=== PATIENT | male | born 1955 | race Caucasian/White ===

== ENCOUNTER 2017-09-13 19:39 | Emergency (ER) | payer MEDICAID ==
[~2017-09-13] VITALS: Ht 188 cm; Wt 72.0 kg
[2017-09-13] MEDS ORDERED: KETOROLAC 30 MG/1 ML ONE (20:18)
[2017-09-13] MEDS ORDERED: KETOROLAC 30 MG/1 ML IM ONE (20:30)
[2017-09-13] MEDS ORDERED: PLEASE ENTER ALLERGIES MC SCH (20:30)
[2017-09-13 22:57] VITALS: BP 123/70
== END 2017-09-13 22:59 | disposition home or self-care (01) ==
LOC: ED 21:32
DX: S72.111A Displaced fracture of greater trochanter of right femur, initial encounter for closed fracture (principal); W01.0XXA Fall on same level from slipping, tripping and stumbling without subsequent striking against object, initial encounter; Y93.89 Activity, other specified; Y92.410 Unspecified street and highway as the place of occurrence of the external cause; Y99.8 Other external cause status
CPT/HCPCS: 72192; 73502; 96372; 99284; J1885

== ENCOUNTER 2018-03-23 20:34 | Emergency (ER) | payer MEDICAID ==
[~2018-03-23] VITALS: Ht 188 cm; Wt 75.3 kg
[2018-03-23 20:59] VITALS: BP 130/72
[2018-03-23] MEDS ORDERED: HYDROcodone/APAP 5/325 TABLET ONE (21:53)
[2018-03-23] MEDS ORDERED: HYDROcodone/APAP 5/325 TABLET PO ONE (22:00)
[2018-03-23] MEDS ORDERED: BACITRACIN ZINC OINT 500U/GM, 0.9 GM ONE (23:49)
== END 2018-03-24 00:14 | disposition home or self-care (01) ==
LOC: ED 03-24 00:08
DX: S80.02XA Contusion of left knee, initial encounter (principal); S00.33XA Contusion of nose, initial encounter; R04.0 Epistaxis; K04.7 Periapical abscess without sinus; K02.9 Dental caries, unspecified; F17.200 Nicotine dependence, unspecified, uncomplicated; W01.0XXA Fall on same level from slipping, tripping and stumbling without subsequent striking against object, initial encounter; Y93.01 Activity, walking, marching and hiking; Y92.89 Other specified places as the place of occurrence of the external cause; Y99.8 Other external cause status
CPT/HCPCS: 70486; 99284

== ENCOUNTER 2018-07-13 03:26 | Emergency (ER) | payer MEDICAID ==
[2018-07-13 03:28] VITALS: BP 132/84
--- NOTE | 2018-07-13 03:35 | NUR ---
BIB [facility] FOR RASH TO ABDOMEN DOWN TO KNEES. PER [facility] WHEN THEY LIFTED THE PATIENTS SHIRT THEY SAY BUGS CRAWLING ON HIS BACK AND ALSO IN HIS HAIR AND ON HIS HAT. PT TAKEN TO [facility] SHOWER ROOM IMMEDIATELY UPON ARRIVAL. PT REMOVED CLOTHES AND STARTED TO BATHE SELF.
--- NOTE | 2018-07-13 03:43 | NUR ---
PT GIVEN CLEAN CLOTHES. INFESTED CLOTHES PLACED IN RED BIOHAZARD BAG.
== END 2018-07-13 04:35 | disposition home or self-care (01) ==
LOC: ED 03:47
DX: B86 Scabies (principal)
CPT/HCPCS: 99283

== ENCOUNTER 2018-07-13 19:02 | Inpatient (IN) | payer MEDICAID ==
[~2018-07-13] VITALS: Ht 182.9 cm; Wt 78.2 kg
--- NOTE | 2018-07-13 19:20 | NUR ---
JOHANA ROCKWELL FROM [facility] FOR BED BUGS CRAWLING IN HAIR. PT HAS DRY, ITCHY SKIN STARTING AT NECK DOWN TO LEGS. PT TAKEN TO [facility] FOR SHOWER UPON ARRIVAL.
[2018-07-13 19:52] LABS: BASOPHILS # (AUTO) 0.05 x10^3/uL (0-0.1); BASOPHILS % (AUTO) 0 % (0-1); EOSINOPHILS # (AUTO) 0.44 x10^3/uL (0-0.4); EOSINOPHILS % (AUTO) 4 % (1-7); LYMPHOCYTES # (AUTO) 0.88 x10^3/uL (1-3.4); LYMPHOCYTES % (AUTO) 8 % (22-44); MD NO; MEAN CORPUSCULAR HGB CONC 33.9 g/dL (33.2-36.2); MEAN CORPUSCULAR VOLUME 94.4 fL (81-97); MEAN PLATELET VOLUME 7.2 fL (7.4-10.4); MONOCYTES # (AUTO) 1.08 x10^3/uL (0.2-0.8); MONOCYTES % (AUTO) 9 % (2-9); NEUTROPHILS # (AUTO) 9.05 x10^3/uL (1.8-6.8); NEUTROPHILS % (AUTO) 79 % (42-75); PLATELET COUNT 297 x10^3/uL (130-400); RED BLOOD COUNT 4.09 x10^6/uL (4.38-5.82); RED CELL DISTRIBUTION WIDTH 14.5 % (9.4-14.8)
[2018-07-13] MEDS ORDERED: BACITRACIN OINT 500U/GM, 15 GM TP ONE (20:00)
[2018-07-13] MEDS ORDERED: AMPICILLIN/SULBACTAM 3 GM in SODIUM CHLORIDE 0.9% 100 ML IV ONE (20:00)
[2018-07-13 20:05] LABS: ALANINE AMINOTRANSFERASE 14 U/L (12-78); ANION GAP 8 mmol/L (5-15); CALCIUM 8.2 mg/dL (8.5-10.1); CHLORIDE 103 mmol/L (98-107); CREATININE 0.88 mg/dL (0.7-1.3)
[2018-07-13 20:07] LABS: ALKALINE PHOSPHATASE 80 U/L (45-117); BILIRUBIN,TOTAL 0.3 mg/dL (0.2-1.0); TOTAL PROTEIN 6.9 g/dL (6.4-8.2)
--- NOTE | 2018-07-13 21:04 | NUR ---
PT SLEEPING. VSS. UPDATED ON POC.
[2018-07-14] MEDS ORDERED: ONDANSETRON ODT 4 MG PO PRN
[2018-07-14] MEDS ORDERED: LIDODERM 5% PATCH TD PRN
[2018-07-14] MEDS ORDERED: PERMETHRIN CRM 5%, 60GM TP SCH
[2018-07-14] MEDS ORDERED: ENALAPRILAT 1.25 MG/ML, 2ML IVPush PRN
[2018-07-14] MEDS ORDERED: BISACODYL 10 MG SUPP PR PRN
[2018-07-14 01:52] VITALS: BP 139/72
[2018-07-14] MEDS: ENOXAPARIN 40 MG/0.4 ML SQ SCH (03:00)
[2018-07-14] MEDS: DIPHENHYDRAMINE 25 MG CAPSULE PO PRN ×3 (03:00→23:15)
[2018-07-14] MEDS: AMPICILLIN/SULBACTAM 3 GM in SODIUM CHLORIDE 0.9% 100 ML IV SCH ×3 (03:01→20:19)
[2018-07-14 04:51] LABS: BASOPHILS # (AUTO) 0.02 x10^3/uL (0-0.1); BASOPHILS % (AUTO) 0 % (0-1); EOSINOPHILS # (AUTO) 0.57 x10^3/uL (0-0.4); EOSINOPHILS % (AUTO) 5 % (1-7); LYMPHOCYTES # (AUTO) 1.15 x10^3/uL (1-3.4); LYMPHOCYTES % (AUTO) 10 % (22-44); MD NO; MEAN CORPUSCULAR HEMOGLOBIN 32.2 pg (27.5-34.5); MEAN CORPUSCULAR HGB CONC 34.2 g/dL (33.2-36.2); MEAN CORPUSCULAR VOLUME 94.1 fL (81-97); MEAN PLATELET VOLUME 7.4 fL (7.4-10.4); MONOCYTES # (AUTO) 1.11 x10^3/uL (0.2-0.8); MONOCYTES % (AUTO) 10 % (2-9); NEUTROPHILS # (AUTO) 8.87 x10^3/uL (1.8-6.8); NEUTROPHILS % (AUTO) 76 % (42-75); PLATELET COUNT 293 x10^3/uL (130-400); RED BLOOD COUNT 3.93 x10^6/uL (4.38-5.82); RED CELL DISTRIBUTION WIDTH 14.5 % (9.4-14.8)
[2018-07-14 05:01] LABS: ANION GAP 6 mmol/L (5-15); CHLORIDE 105 mmol/L (98-107); CREATININE 0.65 mg/dL (0.7-1.3)
[2018-07-14 07:19] VITALS: BP 100/55
[2018-07-14 13:16] VITALS: BP 99/58
[2018-07-14] MEDS ORDERED: POTASSIUM CHLORIDE 20 MEQ TAB.ER.PRT PO ONE (14:00)
[2018-07-14] MEDS: MUPIROCIN OINT 2%, 22GM TP SCH (16:05)
[2018-07-14] MEDS: MINERA CRM, 60GM TP SCH ×2 (16:05→21:00)
[2018-07-14 19:48] VITALS: BP 104/63
[2018-07-15 01:41] VITALS: BP 98/60
[2018-07-15] MEDS: ENOXAPARIN 40 MG/0.4 ML SQ SCH (04:04)
[2018-07-15] MEDS: AMPICILLIN/SULBACTAM 3 GM in SODIUM CHLORIDE 0.9% 100 ML IV SCH ×3 (04:04→20:30)
[2018-07-15] MEDS: MUPIROCIN OINT 2%, 22GM TP SCH ×2 (04:05→17:04)
[2018-07-15 08:19] VITALS: BP 107/54
[2018-07-15] MEDS: MINERA CRM, 60GM TP SCH ×3 (09:04→20:30)
[2018-07-15 12:15] VITALS: BP 123/67
[2018-07-15] MEDS: DIPHENHYDRAMINE 25 MG CAPSULE PO PRN ×2 (12:46→20:53)
[2018-07-15 18:58] VITALS: BP 108/62
[2018-07-15] MEDS ORDERED: POTASSIUM CHLORIDE 20 MEQ TAB.ER.PRT PO ONE (20:30)
[2018-07-16 02:08] VITALS: BP 114/66
[2018-07-16] MEDS: ENOXAPARIN 40 MG/0.4 ML SQ SCH (04:03)
[2018-07-16] MEDS: MUPIROCIN OINT 2%, 22GM TP SCH ×2 (04:03→18:23)
[2018-07-16] MEDS: AMPICILLIN/SULBACTAM 3 GM in SODIUM CHLORIDE 0.9% 100 ML IV SCH ×3 (04:04→20:27)
[2018-07-16] MEDS: DIPHENHYDRAMINE 25 MG CAPSULE PO PRN ×2 (04:23→18:28)
[2018-07-16] MEDS: ACETAMINOPHEN 325 MG TABLET PO PRN ×2 (04:23→20:27)
[2018-07-16 05:56] LABS: ANION GAP 5 mmol/L (5-15); CALCIUM 8.1 mg/dL (8.5-10.1); CHLORIDE 107 mmol/L (98-107)
[2018-07-16 05:59] LABS: BASOPHILS # (AUTO) 0.04 x10^3/uL (0-0.1); BASOPHILS % (AUTO) 1 % (0-1); EOSINOPHILS # (AUTO) 1.04 x10^3/uL (0-0.4); EOSINOPHILS % (AUTO) 14 % (1-7); LYMPHOCYTES # (AUTO) 1.34 x10^3/uL (1-3.4); LYMPHOCYTES % (AUTO) 18 % (22-44); MD NO; MEAN CORPUSCULAR HEMOGLOBIN 31.2 pg (27.5-34.5); MEAN CORPUSCULAR HGB CONC 32.9 g/dL (33.2-36.2); MEAN CORPUSCULAR VOLUME 94.8 fL (81-97); MEAN PLATELET VOLUME 7.5 fL (7.4-10.4); MONOCYTES # (AUTO) 0.74 x10^3/uL (0.2-0.8); MONOCYTES % (AUTO) 10 % (2-9); NEUTROPHILS # (AUTO) 4.37 x10^3/uL (1.8-6.8); NEUTROPHILS % (AUTO) 58 % (42-75); PLATELET COUNT 326 x10^3/uL (130-400); RED CELL DISTRIBUTION WIDTH 14.3 % (9.4-14.8)
[2018-07-16 07:05] VITALS: BP 114/74
[2018-07-16] MEDS: MULTIVITAMIN 1 TABLET PO SCH (09:27)
[2018-07-16] MEDS: MINERA CRM, 60GM TP SCH ×3 (09:28→20:27)
[2018-07-16 15:27] VITALS: BP 119/75
[2018-07-16 19:55] VITALS: BP 113/70
[2018-07-17 01:29] VITALS: BP 130/74
[2018-07-17] MEDS: AMPICILLIN/SULBACTAM 3 GM in SODIUM CHLORIDE 0.9% 100 ML IV SCH ×2 (04:17→12:37)
[2018-07-17] MEDS: MUPIROCIN OINT 2%, 22GM TP SCH ×2 (04:17→17:38)
[2018-07-17] MEDS: ENOXAPARIN 40 MG/0.4 ML SQ SCH (04:17)
[2018-07-17] MEDS: ACETAMINOPHEN 325 MG TABLET PO PRN (04:25)
[2018-07-17 06:55] VITALS: BP 126/74
[2018-07-17] MEDS: MULTIVITAMIN 1 TABLET PO SCH (08:39)
[2018-07-17] MEDS: MINERA CRM, 60GM TP SCH ×2 (08:39→17:37)
[2018-07-17] MEDS: DIPHENHYDRAMINE 25 MG CAPSULE PO PRN (08:39)
[2018-07-17 14:00] VITALS: BP 155/75
[2018-07-17] MEDS ORDERED: SULF-169 PO (15:01)
[2018-07-17] MEDS ORDERED: CALA118S2 TP (15:01)
[2018-07-17] MEDS ORDERED: MULT1TAB60 PO (15:01)
[2018-07-17] MEDS ORDERED: LIDO700A20 TD (15:01)
[2018-07-17] MEDS ORDERED: AMOX1TAB12 PO (15:01)
[2018-07-17] MEDS ORDERED: MUPI22OI2 TP (15:01)
[2018-07-17 16:06] VITALS: BP 123/73
[2018-07-17 18:00] VITALS: BP 127/80
[2018-07-17] MEDS ORDERED: SULFAMETH./TRIMETHOPRIM DS 800MG/160MG TABLET PO SCH (21:00)
[2018-07-17] MEDS ORDERED: AMOXICILLIN/CLAV 875-125MG TABLET PO SCH (21:00)
== END 2018-07-17 19:32 | disposition home or self-care (01) | DRG 872 ==
LOC: ED 20:35 → EDIP 21:07 → 3NE 22:10
PROVIDERS: ADMIT Family Medicine; ATTEND Family Medicine
DX: A41.9 Sepsis, unspecified organism (principal); E87.2 Acidosis; L03.317 Cellulitis of buttock; L03.116 Cellulitis of left lower limb; B86 Scabies; F10.20 Alcohol dependence, uncomplicated; F17.200 Nicotine dependence, unspecified, uncomplicated; M50.30 Other cervical disc degeneration, unspecified cervical region; L20.9 Atopic dermatitis, unspecified; H35.30 Unspecified macular degeneration; W57.XXXA Bitten or stung by nonvenomous insect and other nonvenomous arthropods, initial encounter; Z59.0 Homelessness; Y93.89 Activity, other specified; Y92.89 Other specified places as the place of occurrence of the external cause; Y99.8 Other external cause status
CPT/HCPCS: 36415; 80048; 80053; 83605; 83735; 84100; 85025; 87040; 96365; G0378; J0295; J1650; Q0163

== ENCOUNTER 2018-09-28 20:55 | Emergency (ER) | payer MEDICAID ==
[~2018-09-28] VITALS: Ht 188 cm; Wt 73.9 kg
[2018-09-28 21:03] VITALS: BP 153/72
== END 2018-09-28 21:49 | disposition home or self-care (01) ==
LOC: ED 21:43
DX: L03.221 Cellulitis of neck (principal); L03.311 Cellulitis of abdominal wall; L03.313 Cellulitis of chest wall; L03.113 Cellulitis of right upper limb; L03.114 Cellulitis of left upper limb; L03.115 Cellulitis of right lower limb; L03.116 Cellulitis of left lower limb; Z72.9 Problem related to lifestyle, unspecified; Z59.0 Homelessness; F17.210 Nicotine dependence, cigarettes, uncomplicated
CPT/HCPCS: 99283

== ENCOUNTER 2019-06-17 15:35 | Emergency (ER) | payer MEDICAID ==
[~2019-06-17] VITALS: Ht 188 cm; Wt 73.0 kg
[2019-06-17 15:35] VITALS: BP 129/80
[~2019-06-17 15:35] MED LIST: AMOX1TAB12 PO; CALA118S2 TP; LIDO700A20 TD; MULT1TAB60 PO; MUPI22OI2 TP; SULF-169 PO
--- NOTE | 2019-06-17 16:45 | NUR ---
Patient given discharge instructions and Rx, they have confirmed that they understand the instructions. Patient ambulatory with steady gait.
== END 2019-06-17 16:47 | disposition home or self-care (01) ==
LOC: ED 16:04
DX: B34.9 Viral infection, unspecified (principal); B85.1 Pediculosis due to Pediculus humanus corporis; R19.7 Diarrhea, unspecified; F17.210 Nicotine dependence, cigarettes, uncomplicated
CPT/HCPCS: 71045; 99283

== ENCOUNTER 2020-03-26 02:57 | Inpatient (IN) | payer MEDICAID ==
[~2020-03-26] VITALS: Ht 175.3 cm; Wt 83.2 kg
[~2020-03-26 02:57] MED LIST changes: +MULT-449 PO; -MULT1TAB60 PO
[2020-03-26] MEDS ORDERED: DIPHTHERIA-TETANUS ADULT 0.5ML IM-VACC ONE (03:30)
[2020-03-26] MEDS ORDERED: LIDOCAINE 2%, 20ML SQ ONE (03:30)
[2020-03-26 04:02] LABS: MEAN CORPUSCULAR HEMOGLOBIN 30.8 pg (27.5-34.5); MEAN CORPUSCULAR HGB CONC 33.4 g/dL (33.2-36.2); MEAN PLATELET VOLUME 7.1 fL (7.4-10.4); PLATELET COUNT 284 x10^3/uL (130-400); RED BLOOD COUNT 4.73 x10^6/uL (4.38-5.82); RED CELL DISTRIBUTION WIDTH 15.3 % (9.4-14.8)
[2020-03-26 04:09] LABS: ALANINE AMINOTRANSFERASE 21 U/L (12-78); ALBUMIN 3.9 g/dL (3.4-5.0); ANION GAP 5 mmol/L (5-15); CALCIUM 8.6 mg/dL (8.5-10.1); CHLORIDE 108 mmol/L (98-107); CREATININE 0.92 mg/dL (0.7-1.3)
[2020-03-26 04:12] LABS: ALKALINE PHOSPHATASE 118 U/L (45-117); BILIRUBIN,TOTAL 0.4 mg/dL (0.2-1.0); TOTAL PROTEIN 8.1 g/dL (6.4-8.2)
[2020-03-26 04:25] LABS: MD YES
[2020-03-26 04:30] LABS: ANISOCYTOSIS 1+; EOS#(MANUAL) 2.29 x10^3/uL (0.0-0.4); EOS% (MANUAL) 26 % (1-7); LYMPH#(MANUAL) 1.23 x10^3/uL (1-3.4); LYMPHS% (MANUAL) 14 % (22-44); METAMYELOCYTES# (MANUAL) 0.09 x10^3/uL (0-0); METAMYELOCYTES% (MANUAL) 1 % (0-1); MONOS#(MANUAL) 0.35 x10^3/uL (0.3-2.7); MONOS% (MANUAL) 4 % (2-9); REACTIVE LYMPHS # (MANUAL) 0.09 x10^3/uL (0-0); REACTIVE LYMPHS % (MANUAL) 1 % (0-0); SEG#(MANUAL) 4.75 x10^3/uL (1.8-6.8); SEGS% (MANUAL) 54 % (42-75)
--- NOTE | 2020-03-26 04:30 | NUR ---
PT [facility] OF BODY LICE. PT PLACED IN [facility] POOJA AND FRESH SCRUBS.
[2020-03-26 04:31] LABS: <PLATELET ESTIMATE> ADEQUATE; <PLT MORPHOLOGY> NORMAL PLT MORPH; OVALOCYTES 1+
[2020-03-26] MEDS ORDERED: DIPH,PERTUSS(ACELL),TET VAC/PF 0.5 ML IM-VACC ONE (04:46)
[2020-03-26] MEDS ORDERED: LIDOCAINE-MPF 2% ,5ML ONE (04:53)
[2020-03-26] MEDS ORDERED: DOCUSATE 100 MG CAPSULE PO PRN (05:30)
[2020-03-26] MEDS ORDERED: LABETALOL 5MG/ML, 20ML IVPush PRN (05:30)
[2020-03-26] MEDS ORDERED: ONDANSETRON 2MG/ML, 2ML IVPush PRN (05:30)
[2020-03-26] MEDS ORDERED: GUAIFENESIN/DM 200-20MG, 10ML UDC PO PRN (05:30)
[2020-03-26] MEDS ORDERED: ACETAMINOPHEN 325 MG TABLET PO PRN (05:30)
[2020-03-26 07:07] VITALS: BP 106/67
[2020-03-26] MEDS: NICOTINE 21 MG/24 HR PATCH.TD24 TD SCH (09:40)
[2020-03-26] MEDS ORDERED: PIPERONYL BUTOXIDE/PYRETHRINS 4OZ. SHAMPOO TP SCH (11:30)
[2020-03-26 14:30] VITALS: BP 105/61
[2020-03-26] MEDS ORDERED: LORazepam 2 MG/ML, 1ML IVPush PRN (17:00)
[2020-03-26] MEDS: MULTIVITAMIN 1 TABLET PO SCH (18:58)
[2020-03-26] MEDS: POTASSIUM CHLORIDE 20 MEQ, MAGNESIUM SULFATE 1 GM, FOLIC ACID 1 MG, THIAMINE 200 MG in ... IV SCH (19:52)
[2020-03-26 20:57] VITALS: BP 120/70
[2020-03-27 02:02] VITALS: BP 147/81
[2020-03-27 05:30] LABS: BASOPHILS % (AUTO) 1 % (0-1); EOSINOPHILS % (AUTO) 16 % (1-7); LYMPHOCYTES % (AUTO) 15 % (22-44); MEAN CORPUSCULAR HEMOGLOBIN 30.9 pg (27.5-34.5); MEAN PLATELET VOLUME 7.9 fL (7.4-10.4); MONOCYTES % (AUTO) 8 % (2-9); NEUTROPHILS % (AUTO) 61 % (42-75); PLATELET COUNT 296 x10^3/uL (130-400); RED BLOOD COUNT 4.64 x10^6/uL (4.38-5.82); RED CELL DISTRIBUTION WIDTH 15.5 % (9.4-14.8)
[2020-03-27 05:44] LABS: CHLORIDE 106 mmol/L (98-107)
[2020-03-27 05:48] LABS: ANION GAP 7 mmol/L (5-15); CREATININE 0.89 mg/dL (0.7-1.3)
[2020-03-27 06:24] LABS: MD SCAN
[2020-03-27 06:58] VITALS: BP 135/92
[2020-03-27] MEDS: NICOTINE 21 MG/24 HR PATCH.TD24 TD SCH (08:27)
[2020-03-27 12:16] VITALS: BP 121/81
[2020-03-27] MEDS: MULTIVITAMIN 1 TABLET PO SCH (17:50)
[2020-03-27] MEDS: POTASSIUM CHLORIDE 20 MEQ, MAGNESIUM SULFATE 1 GM, FOLIC ACID 1 MG, THIAMINE 200 MG in ... IV SCH (17:50)
[2020-03-27 20:18] VITALS: BP 152/90
[2020-03-28 01:29] VITALS: BP 127/83
[2020-03-28] MEDS: NICOTINE 21 MG/24 HR PATCH.TD24 TD SCH (07:25)
[2020-03-28 07:31] VITALS: BP 105/58
[2020-03-28 14:10] VITALS: BP 107/71
[2020-03-28] MEDS: POTASSIUM CHLORIDE 20 MEQ, MAGNESIUM SULFATE 1 GM, FOLIC ACID 1 MG, THIAMINE 200 MG in ... IV SCH (18:01)
[2020-03-28] MEDS: MULTIVITAMIN 1 TABLET PO SCH (18:01)
[2020-03-28 19:14] VITALS: BP 108/61
[2020-03-29 00:52] VITALS: BP 125/75
[2020-03-29 07:39] VITALS: BP 156/91
[2020-03-29] MEDS: NICOTINE 21 MG/24 HR PATCH.TD24 TD SCH (09:00)
[2020-03-29 15:08] VITALS: BP 134/70
[2020-03-29 19:33] VITALS: BP 136/77
[2020-03-30 08:24] VITALS: BP 151/81
[2020-03-30] MEDS: NICOTINE 21 MG/24 HR PATCH.TD24 TD SCH (08:55)
== END 2020-03-30 13:20 | disposition home or self-care (01) | DRG 124 ==
LOC: ED 05:29 → INTOOBSV 06:02 → OBSVTOIN 06:02 → EDIP 06:02 → 4WST 06:44 → 3N 03-27 17:42
PROVIDERS: ADMIT Family Medicine; ATTEND Hospitalist
PROC: 0HQ1XZZ Repair Face Skin, External Approach (ICD-10-PCS; principal; 2020-03-26)
DX: S01.112A Laceration without foreign body of left eyelid and periocular area, initial encounter (principal); S06.329A Contusion and laceration of left cerebrum with loss of consciousness of unspecified duration, initial encounter; G93.41 Metabolic encephalopathy; F10.239 Alcohol dependence with withdrawal, unspecified; S02.40FA Zygomatic fracture, left side, initial encounter for closed fracture; B88.8 Other specified infestations; F07.81 Postconcussional syndrome; F10.229 Alcohol dependence with intoxication, unspecified; F17.200 Nicotine dependence, unspecified, uncomplicated; F32.9 Major depressive disorder, single episode, unspecified; W01.0XXA Fall on same level from slipping, tripping and stumbling without subsequent striking against object, initial encounter; Y93.89 Activity, other specified; Y92.89 Other specified places as the place of occurrence of the external cause; Y99.8 Other external cause status
CPT/HCPCS: 36415; J7121; 70450; 70486; 72125; 80048; 80053; 80320; 85025; 90714; G0378; J3411; J3475; J3480; G0480; Q0177